=== PATIENT | male | born 1990 | race African-American/Black ===

== ENCOUNTER 2017-04-20 10:51 | Emergency (ER) | payer MEDICAID, MEDICARE ==
[2017-04-20] MEDS ORDERED: OXYCODONE-ACETAMINOPHEN 5-325 MG TABLET PO ONE (12:40)
--- NOTE | 2017-04-20 12:46 | ER Document Report ---
ED General - General Chief Complaint: Abscess Stated Complaint: HAND INJURY Time Seen by Provider: 04/20/17 12:13 Mode of Arrival: Ambulatory Information source: Patient Notes: Patient presents emergency department with abscess to his left medial wrist. He reports area was sore yesterday but this morning when he woke up it was swollen. Reports history of abscesses to his chest tailbone. Denies other symptoms such as fever vomiting diarrhea. Is unsure of MRSA status. TRAVEL OUTSIDE OF THE [place] IN LAST 30 DAYS: No - HPI Onset: Yesterday Onset/Duration: Sudden Quality of pain: Achy Severity: Severe Pain Level: 5 Associated symptoms: None Exacerbated by: Denies Relieved by: Denies Similar symptoms previously: No Recently seen / treated by doctor: No - Related Data Allergies/Adverse Reactions: tramadol [Tramadol] Allergy (Verified 04/20/17 11:00) Past Medical History - General Information source: Patient - Social History Smoking Status: Current Every Day Smoker Cigarette use (# per day): Yes Frequency of alcohol use: None Drug Abuse: None Lives with: Family Family History: Reviewed & Not Pertinent Patient has suicidal ideation: No Patient has homicidal ideation: No - Past Medical History Cardiac Medical History: Denies: Hx Heart Attack, Hx Hypertension Pulmonary Medical History: Reports: Hx Asthma - pediatric Denies: Hx Bronchitis, Hx COPD, Hx Pneumonia Neurological Medical History: Denies: Hx Seizures Renal/ Medical History: Denies: Hx Peritoneal Dialysis Musculoskeltal Medical History: Denies Hx Arthritis Skin Medical History: Reports Hx Cellulitis - with abscess Surgical Hx: Negative - Immunizations Immunizations up to date: Yes Hx Diphtheria, Pertussis, Tetanus Vaccination: Yes Review of Systems - Review of Systems Notes: Review HPI for review of systems., All other systems negative Physical Exam - Vital signs Vitals: Temp Pulse Resp BP Pulse Ox 98.3 F 78 16 134/69 H 100 04/20/17 11:00 04/20/17 11:00 04/20/17 11:00 04/20/17 11:00 04/20/17 11:00 - Notes Notes: PHYSICAL EXAMINATION: GENERAL: Well-appearing nontoxic looking HEAD: Atraumatic, normocephalic. EYES: Pupils equal round extraocular movements intact, sclera anicteric, conjunctiva are normal. ENT: nares patent, oropharynx clear without exudates. Moist mucous membranes. NECK: Normal range of motion, supple without lymphadenopathy LUNGS: RR even/unlabored HEART: Regular rate EXTREMITIES: Normal range of motion, NEUROLOGICAL: Cranial nerves grossly intact. Normal sensory/motor exams. PSYCH: Normal mood, normal affect. SKIN: Warm, Dry, normal turgor, abscess, fluctuant to left medial wrist ~ 3 cm Course - Re-evaluation Re-evalutation: 04/20/17 13:10 Abscess open and drained a large amount of discharge obtained. Patient instructed on pain medication and Septra. Patient instructed on signs and symptoms of worsening infection and instructed to return to the emergency department. He verbalized understanding to all instructions. - Vital Signs Vital signs: Temp Pulse Resp BP Pulse Ox 98.3 F 78 16 134/69 H 100 04/20/17 11:00 04/20/17 11:00 04/20/17 11:00 04/20/17 11:00 04/20/17 11:00 Procedures - Incision and Drainage Left Wrist Time completed: 13:09 Type: Simple Anesthetic type: 1% Lidocaine mL's of anesthetic: 1 Blade size: 11 I&D procedure: Shurclens applied Incision Method: Incision made by scalpel Amount/type of drainage: large amount white discharge Hands back picture: 1 - 3 cm abscess drained, large horizontal incision made Discharge - Discharge Clinical Impression: abscess left wrist, Elevated blood pressure reading Condition: Stable Disposition: HOME, SELF-CARE Instructions: Abscess ([facility]), Post Incision and Drainage, Oral Narcotic Medication ([facility]), Trimethoprim-Sulfa ([facility]) Additional Instructions: *You have been treated for an abscess with incision and drainage *Take medication as prescribed *Monitor the site for signs of increasing infection such as increasing pain, redness, swelling, warmth *Wash the site twice daily as discussed *Follow up with a primary care provider within 5 days for recheck *Return to ED for signs of increasing infection, worsening condition, changes, needs Monitor your blood pressure. Your blood pressure was elevated today. This may be because you were anxious, in pain or because you need medication. It is important to follow up with your primary care provider for full evaluation. Prescriptions: Oxycodone HCl/Acetaminophen [Percocet 5-325 mg Tablet] 1 - 2 tab PO ASDIR PRN # 15 tablet PRN Reason: Sulfamethoxazole/Trimethoprim [Bactrim Ds Tablet] 1 each PO BID #20 tablet Forms: Elevated Blood Pressure Referrals: [facility] [Primary Care Provider] - Follow up in 3-5 days
[2017-04-20 13:39] VITALS: BP 137/81
== END 2017-04-20 13:46 | disposition home or self-care (01) ==
LOC: ER 10:51
PROC: 0H9EXZZ Drainage of Left Lower Arm Skin, External Approach (ICD-10-PCS; principal; 2017-04-20)
DX: L02.512 Cutaneous abscess of left hand (principal); R03.0 Elevated blood-pressure reading, without diagnosis of hypertension; F17.210 Nicotine dependence, cigarettes, uncomplicated
CPT/HCPCS: 99283; 87070; 87205; 87075; 87077; 10060; A9270

== ENCOUNTER 2018-09-19 10:08 | Emergency (ER) | payer MEDICARE, MEDICAID ==
[2018-09-19 10:15] VITALS: BP 136/75
[2018-09-19] MEDS ORDERED: LIDOCAINE 1% INJ-PF (10 MG/ML) 30 ML SDV INJ ONE (10:50)
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
--- NOTE | 2018-09-19 12:30 | RADIOLOGY REPORT (SQ) ---
EXAM DESCRIPTION: HAND RIGHT 3 VIEWS COMPLETED DATE/TIME: 09/19/2018 11:50 am REASON FOR STUDY: laceration r/o FB COMPARISON: None. EXAM PARAMETERS: NUMBER OF VIEWS: Three views. TECHNIQUE: AP, lateral and oblique radiographic images acquired of the right hand. LIMITATIONS: None. FINDINGS: MINERALIZATION: Normal. BONES: No acute fracture or dislocation. No worrisome bone lesions. JOINTS: No effusions. SOFT TISSUES: Soft tissue deformity noted adjacent to the head of the 2nd metacarpal laterally. OTHER: No radiopaque foreign body. IMPRESSION: Soft tissue deformity adjacent to the 2nd metacarpal head. No radiopaque foreign body. No fracture. TECHNICAL DOCUMENTATION: JOB ID: [id number] 2010 [employer]- All Rights Reserved Reading location - IP/workstation name: [email or web address]
== END 2018-09-19 12:20 | disposition home or self-care (01) ==
LOC: ER 10:08
DX: S61.210A Laceration without foreign body of right index finger without damage to nail, initial encounter (principal); Y00.XXXA Assault by blunt object, initial encounter; F17.210 Nicotine dependence, cigarettes, uncomplicated; Z71.6 Tobacco abuse counseling; Z88.5 Allergy status to narcotic agent
CPT/HCPCS: 99283

== ENCOUNTER 2019-07-28 14:23 | Emergency (ER) | payer MEDICAID, MEDICARE ==
[2019-07-28 14:27] VITALS: BP 141/64
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
--- NOTE | 2019-07-28 15:31 | RADIOLOGY REPORT (SQ) ---
EXAM DESCRIPTION: FOOT LEFT COMPLETE COMPLETED DATE/TIME: 07/28/2019 2:58 pm REASON FOR STUDY: pain kicked something yesterday COMPARISON: None. NUMBER OF VIEWS: Three views. TECHNIQUE: AP, lateral and oblique radiographic images acquired of the left foot. LIMITATIONS: None. FINDINGS: MINERALIZATION: Normal. BONES: No acute fracture or dislocation. Accessory ossicle adjacent to the lateral midfoot. No worr isome bone lesions. JOINTS: No effusions. SOFT TISSUES: No soft tissue swelling. No foreign body. OTHER: No other significant finding. IMPRESSION: NEGATIVE STUDY OF THE LEFT FOOT. NO RADIOGRAPHIC EVIDENCE OF ACUTE INJURY. TECHNICAL DOCUMENTATION: JOB ID: [id number] [employer]- All Rights Reserved Reading location - IP/workstation name: [email or web address]
--- NOTE | 2019-07-28 15:52 | ER Document Report ---
HPI - HPI Time Seen by Provider: 07/28/19 14:38 Pain Level: 4 Notes: Patient is a 29-year-old male no significant past medical history presents complaining of left fifth toe pain status post injury yesterday. Patient states that he kicked it off of a porch by accident yesterday. Patient states he is able to ambulate, but does have a limp. He has not noticed any break in the skin. He has no other concerns or complaints. The pain does not radiate. Denies any headache, fever, head injury, neck pain, URI, sore throat, chest pain, palpitations, syncope, cough, shortness of breath, wheeze, dyspnea, abdominal pain, nausea/vomiting/diarrhea, urinary retention, dysuria, hematuria, loss of control of bowel or bladder, numbness/tingling, muscle paralysis, or rash. - ROS Systems Reviewed and Negative: Yes All other systems reviewed and negative - REPRODUCTIVE Reproductive: DENIES: : Past Medical History - General Information source: Patient - Social History Smoking Status: Current Some Day Smoker Chew tobacco use (# tins/day): No Frequency of alcohol use: None Drug Abuse: None Family History: Reviewed & Not Pertinent Patient has suicidal ideation: No Patient has homicidal ideation: No - Past Medical History Cardiac Medical History: Denies: Hx Heart Attack, Hx Hypertension Pulmonary Medical History: Reports: Hx Asthma - pediatric Denies: Hx Bronchitis, Hx COPD, Hx Pneumonia Neurological Medical History: Denies: Hx Seizures Renal/ Medical History: Denies: Hx Peritoneal Dialysis Musculoskeletal Medical History: Denies Hx Arthritis Skin Medical History: Reports Hx Cellulitis - with abscess - Immunizations Immunizations up to date: Yes Hx Diphtheria, Pertussis, Tetanus Vaccination: Yes Vertical Provider Document - CONSTITUTIONAL Agree With Documented VS: Yes Notes: PHYSICAL EXAMINATION: GENERAL: Well-appearing, well-nourished and in no acute distress. LUNGS: Breath sounds clear to auscultation bilaterally and equal. No wheezes rales or rhonchi. HEART: Regular rate and rhythm without murmurs, rubs, gallops. Musculoskeletal: Lt foot/ankle: + mild swelling 5th toe. No ecchymosis, or deformity. FROM to passive/active. Strength 5+/5. N/V intact distal. + tenderness to the 5th toe to palp. No other bony tenderness of the foot/ankle. Achilles intact. Lis Franc maneuver neg. Anterior drawer neg. Extremities: No cyanosis, clubbing, or edema b/l. Peripheral pulses 2+. Capillary refill less than 3 seconds. NEUROLOGICAL: Normal speech, limping gait. Normal sensory, motor exams PSYCH: Normal mood, normal affect. SKIN: Warm, Dry, normal turgor, no rashes or lesions noted. - INFECTION CONTROL TRAVEL OUTSIDE OF THE [place] IN LAST 30 DAYS: No Course - Re-evaluation Re-evalutation: 07/28/19 15:50 Patient is an afebrile, well-hydrated, 29-year-old male who presents to the ED with left 5th toe pain which I suspect to be a contusion. Vitals are acceptable without any significant tachycardia, tachypnea, or hypoxia. PE is otherwise unremarkable for any neurovascular compromise, obvious tendon/ligament rupture, obvious fracture/dislocation, septic joint. X-ray was unremarkable for any acute pathology. Pt declined crutches. Patient declined any Tylenol or ice. Patient is nontoxic-appearing. Patient is able to ambulate and weight-bear. No other labs or imaging warranted at this time based on H&P. Conservative measures otherwise for symptoms. Recheck with your PCM in 3-5 days. Consider consult orthopedics. Return to the ED with any worsening/concerning symptoms otherwise as reviewed in discharge. Patient is in agreement. - Vital Signs Vital signs: Temp Pulse Resp BP Pulse Ox 98.3 F 98 16 141/64 H 95 07/28/19 14:26 07/28/19 14:26 07/28/19 14:26 07/28/19 14:26 07/28/19 14:26 Discharge - Discharge Clinical Impression: Toe pain, left Condition: Stable Disposition: HOME, SELF-CARE Additional Instructions: Rest, Ice, Compression, Elevation Tylenol/ibuprofen as needed Light stretches daily Strength exercises as able Moist heat and massage may help F/u with your PCP in 3-5 days for a recheck Consider consult(s) with Orthopedics/physical therapy for ongoing/worsening symptoms Return to the ED with any worsening symptoms and/or development of fever, headache, chest pain, palpitations, syncope, shortness of breath, trouble breathing, abdominal pain, n/v/d, muscle weakness/paralysis, numbness/tingling, swelling, redness, or other worsening symptoms that are concerning to you. Prescriptions: Ibuprofen [Motrin 800 mg Tablet] 800 mg PO Q8H PRN #15 tab PRN Reason: Forms: Elevated Blood Pressure, Smoking Cessation Education Referrals: SONIA MEJÍA PA-C [Primary Care Provider] - Follow up as needed [facility] [Provider Group] - Follow up as needed
== END 2019-07-28 15:55 | disposition home or self-care (01) ==
LOC: ER 14:23
DX: M79.675 Pain in left toe(s) (principal); M79.89 Other specified soft tissue disorders; W22.09XA Striking against other stationary object, initial encounter; Y93.83 Activity, rough housing and horseplay; F17.200 Nicotine dependence, unspecified, uncomplicated
CPT/HCPCS: 99283